=== PATIENT | female | born 1950 | race Caucasian/White ===

== ENCOUNTER → 2016-10-31 | Outpatient (CLI) | payer OTHER | LOC: MMPC 09:00 | PROVIDERS: ATTEND Family Medicine | DX: G89.29 Other chronic pain (principal); F39 Unspecified mood [affective] disorder; Z72.0 Tobacco use | CPT/HCPCS: 99213; G0463 ==

== ENCOUNTER → 2016-11-30 | Outpatient (CLI) | payer OTHER ==
[2016-11-30 15:33] LABS: FREE T4 (FREE THYROXINE) 0.72 ng/dL (0.93-1.71)
== END ==
LOC: MOB LAB 14:04
PROVIDERS: ATTEND Family Medicine
DX: R94.6 Abnormal results of thyroid function studies (principal)
CPT/HCPCS: 36415; 84439; 84443

== ENCOUNTER → 2016-12-28 | Outpatient (CLI) | payer OTHER | LOC: MMPC 09:00 | PROVIDERS: ATTEND Family Medicine | DX: J43.1 Panlobular emphysema (principal); F39 Unspecified mood [affective] disorder; G89.29 Other chronic pain | CPT/HCPCS: 99213; G0463 ==

== ENCOUNTER → 2017-01-18 | Outpatient (CLI) | payer OTHER | LOC: MMPC 09:00 | PROVIDERS: ATTEND Family Medicine | DX: J20.9 Acute bronchitis, unspecified (principal); F17.210 Nicotine dependence, cigarettes, uncomplicated | CPT/HCPCS: 99213; G0463 ==

== ENCOUNTER → 2017-01-25 | Outpatient (CLI) | payer OTHER | LOC: MMPC 09:00 | PROVIDERS: ATTEND Family Medicine | DX: M25.522 Pain in left elbow (principal); J06.9 Acute upper respiratory infection, unspecified; J43.1 Panlobular emphysema | CPT/HCPCS: 99213; G0463 ==

== ENCOUNTER → 2017-03-02 | Outpatient (CLI) | payer OTHER | LOC: MMPC 09:00 | PROVIDERS: ATTEND Family Medicine | DX: M25.551 Pain in right hip (principal); G89.29 Other chronic pain; R60.0 Localized edema; J43.1 Panlobular emphysema | CPT/HCPCS: 99213; G0463 ==

== ENCOUNTER → 2017-04-17 | Outpatient (CLI) | payer OTHER | LOC: MMPC 09:00 | PROVIDERS: ATTEND Family Medicine | DX: G89.29 Other chronic pain (principal); G47.09 Other insomnia; F39 Unspecified mood [affective] disorder; J43.1 Panlobular emphysema; F17.210 Nicotine dependence, cigarettes, uncomplicated | CPT/HCPCS: 99213; G0463 ==

== ENCOUNTER → 2017-05-17 | Outpatient (CLI) | payer OTHER ==
[2017-05-17 13:50] LABS: CALCIUM 9.4 mg/dL (8.7-10.7); CHOL/HDL RATIO 3.39 RATIO (0-4.0); SERUM ALBUMIN 3.8 g/dL (3.5-4.8)
[2017-05-17 13:52] LABS: HEMOGLOBIN A1C 5.53 % (4.2-6.0)
[2017-05-17 14:15] LABS: HEMATOCRIT 36.1 % (37.0-47.0); HEMOGLOBIN 12.3 g/dL (12.0-16.0); MEAN CORPUSCULAR HEMOGLOBIN 32.5 PG (27-31); MEAN CORPUSCULAR VOLUME 95.3 FL (81-99); RED BLOOD COUNT 3.79 10^6/uL (4.20-5.40)
[2017-05-17 14:16] LABS: MEAN CORPUSCULAR HGB CONC 34.1 g/dL (33-37); MEAN PLATELET VOLUME 9.1 FL (7.4-12.2); PLATELET MORPHOLOGY COMMENT NORMAL MORPHOLOGY (NORM); RBC MORPHOLOGY COMMENT NORMAL MORPHOLOGY (NORM); WBC MORPHOLOGY COMMENT NORMAL MORPHOLOGY (NORM)
[2017-05-17 14:17] LABS: BAND NEUTROPHILS % 0 % (0-10); BASOPHILS % (MANUAL) 0 % (0-1); EOSINOPHILS % (MANUAL) 11 % (0-8); LYMPHOCYTES % (MANUAL) 38 % (10-50); MONOCYTES % (MANUAL) 4 % (0-12); NEUTROPHILS % (MANUAL) 47 % (50-80)
[2017-05-17 15:18] LABS: FREE T4 (FREE THYROXINE) 0.8 ng/dL (0.93-1.71)
== END ==
LOC: MOB LAB 10:50
PROVIDERS: ATTEND Family Medicine
DX: J43.1 Panlobular emphysema (principal); E55.9 Vitamin D deficiency, unspecified; E78.5 Hyperlipidemia, unspecified; G89.29 Other chronic pain; I73.9 Peripheral vascular disease, unspecified; R73.09 Other abnormal glucose; F39 Unspecified mood [affective] disorder; Z72.0 Tobacco use
CPT/HCPCS: 36415; 80053; 80061; 82306; 83036; 84439; 84443; 85007; G0463; 99213